=== PATIENT | male | born 1990 | race Caucasian/White ===

== ENCOUNTER 2016-09-11 16:53 | Inpatient (IN) | payer MEDICARE, MEDICAID ==
[~2016-09-11] VITALS: Ht 190.5 cm; Wt 103.7 kg
[~2016-09-11 16:53] MED LIST: /MUPINAS; ATOM40CA PO; BACT2CRE TOP; OXCA15HATB PO; PROZ40CA PO; VICO5TAB OR
[2016-09-11] MEDS ORDERED: LEXA1TAB PO (17:16)
[2016-09-11] MEDS ORDERED: TRIL150T PO (17:24)
[2016-09-11] MEDS ORDERED: CLON3PA TD (17:24)
[2016-09-11] MEDS ORDERED: DEXT15CA5 PO (17:24)
[2016-09-11 17:46] LABS: MEAN CORPUSCULAR HEMOGLOBIN 30.4 pg (27.0-33.0); MEAN CORPUSCULAR HGB CONC 32.4 g/dl (32.0-36.5); MEAN CORPUSCULAR VOLUME 93.8 fl (80.0-96.0); RED CELL DISTRIBUTION WIDTH 13.7 % (11.5-14.5)
[2016-09-11 18:34] LABS: METHADONE URINE NEGATIVE (NEGATIVE)
[2016-09-11 18:37] LABS: ALBUMIN 4.5 GM/DL (3.2-5.2); ALBUMIN/GLOBULIN RATIO 1.29 (1.00-1.93); ALKALINE PHOSPHATASE 69 U/L (45-117); ALT/SGPT 14 U/L (12-78); ANION GAP 8 MEQ/L (8-16); AST/SGOT 15 U/L (15-37); BILIRUBIN,DIRECT 0.2 MG/DL (0.0-0.2); BILIRUBIN,TOTAL 0.6 MG/DL (0.2-1.0); BLOOD UREA NITROGEN 14 MG/DL (7-18); CALCIUM LEVEL 8.9 MG/DL (8.5-10.1); CARBON DIOXIDE LEVEL 28 MEQ/L (21-32); CHLORIDE LEVEL 104 MEQ/L (98-107); CREATININE FOR GFR 0.84 MG/DL (0.70-1.30); GLOMERULAR FILTRATION RATE > 60.0 (>60); GLUCOSE, FASTING 88 MG/DL (70-105); POTASSIUM SERUM 3.4 MEQ/L (3.5-5.1); SODIUM LEVEL 140 MEQ/L (136-145)
[2016-09-11] MEDS ORDERED: POTASSIUM CHLORIDE 10 MEQ SR TABLET PO ONE (19:15)
[2016-09-11] MEDS ORDERED: CLON-404 PO (20:41)
[2016-09-11] MEDS ORDERED: ADDE15CA PO (20:41)
[2016-09-11] MEDS ORDERED: ADDE5TAB5 PO (20:41)
[2016-09-11] MEDS ORDERED: MOM 30ML SUSPENSION UDC PO PRN (22:00)
[2016-09-11] MEDS ORDERED: ACETAMINOPHEN TAB 650MG DOSE (2X325MG) PO PRN (22:00)
[2016-09-11] MEDS ORDERED: MAALOX 30 ML SUSP *UDC PO PRN (22:00)
[2016-09-11 22:15] VITALS: BP 132/86
[2016-09-11] MEDS: traZODone 50 MG TAB PO PRN (23:06)
[2016-09-11] MEDS: OXcarbazepine 150 MG TAB PO SCH (23:07)
[2016-09-11] MEDS: cloNIDine 0.1 MG TAB PO SCH (23:07)
[2016-09-12 06:14] VITALS: BP 128/68
--- NOTE | 2016-09-12 08:59 | HPEPDOC ---
Medical History and Physical Date of Admission Sep 11, 2016 at 19:14 History and Physical PCP: Dr Mendez ATTENDING: Dr. Emile Garzon HPI: 25yoM admitted to [facility] for unspecified depressive disorder, being medically examined today. No acute medical complaints today. Denies any fevers, chills, weakness, fatigue, RODRIGUEZ, CP, SOB, cough, palpitations, abdominal pain, N/V /D or changes in bowel or bladder habits. PMHx: Anxiety Depression OCD Insomnia ADHD PSHX: H/O ID left hand 09/24/11- MRSA SOCHX: Resides in: [facility] Marital Status: Kids: 1 son Employment: unemployed Tobacco use: 4-5 PPD ETOH: denies Illicit Drugs: marijuana- last used 1 week ago IV Drug Use: Denies Tattoos done unprofessionally: x2 HIV/Hepatitis screening 1 year ago neg per pt. FAMHX: Mother: Alive, depression/HTN Father: Alive, PTSD, depression, H/O SI Siblings: 1 brother, 1 sister Alive, anxiety, depression. Children: Alive, well Unexpected deaths due to medical reasons: None. ROS: As noted in HPI, otherwise 11pt ROS of systems reviewed and unremarkable. PE: GEN: 25yoM, appears stated age. Well-nourished, well developed. No acute distress. Alert and oriented x 3. Pleasant, interactive. HEENT: Normocephalic, atraumatic. Pupils are equal, round, and reactive to light. Extraocular movements are intact. No nystagmus appreciated. Sclera are nonicteric. Conjunctiva without injection. Nose midline. Nasal turbinates without bogginess. EACs both patent BL. TMs both visualized and resendiz with good cone of light, no bulging or erythema. No facial asymmetry. Moist mucous membranes. Dentition fair. Pharynx pink and moist, no cobblestoning. Neck supple , trachea midline. No lymphadenopathy or thyromegaly appreciated. CHEST: Regular rate and rhythm, +S1, +S2 LUNGS: Clear to auscultation bilaterally. No wheezes, rales, or rhonchi. Breathing appears symmetric and easy. Patient is speaking in full sentences. No accessory muscle use. ABD: Round, soft, non-tender, non-distended. +Bowel sounds throughout. No rebound or guarding. No costovertebral angle tenderness. EXT: Pulses 2+ bilaterally dorsalis pedis and radial. No lower extremity edema appreciated. SKIN: [place], dry, warm. Capillary refill <2sec. No rashes. A few small superficial lacerations are noted on the hands b/l (pt states are related to fixing a washer at home). NEURO: Alert and oriented x 3. Cranial nerves III-XII are intact. No focal deficits appreciated. EKG: pending. A&P: 25yoM admitted to [facility] for unspecified depressive disorder 1. Psych. Plan per Psychiatry. Obtain baseline EKG to assure the safety of psychiatric medications as they can prolong the QT interval. 2. Nicotine dependence. Patch available. 3. Hypokalemia. Supplement given in ED by mouth. Recheck BMP. 4. Follow up with PCP on discharge. 5. Substance use. Per psychiatry. 6. Tattoo done unprofessionally. Patient states has been screened for HIV and hepatitis in the past. Patient states was negative. Patient declines rescreening. 7. Steam Hand Arias present throughout exam. Vital Signs Vital Signs Label Value Date Time Patient Temperature 97.9 degrees F 09/12/16 0614 Temperature Source Tympanic 09/12/16 0614 Pulse 66 09/12/16 0614 Respiratory Rate 18 bpm 09/12/16 0614 Blood Pressure Assessment 128/68 (88) 09/12/16 0614 Bedside Pulse Oximetry 98 % 09/11/16 1654 Item Value Date Time Oxygen Delivery Method Room Air 09/11/16 1654 Laboratory Data Labs 24H Laboratory Tests 2 09/11/16 17:29: Acetaminophen Level < 2.0L, Aspartate Amino Transf (AST/SGOT) 15, Alanine Aminotransferase (ALT/SGPT) 14, Alkaline Phosphatase 69, Total Bilirubin 0.6, Direct Bilirubin 0.2, Albumin 4.5, Albumin/Globulin Ratio 1.29, Anion Gap 8, Calcium Level 8.9, Ethyl Alcohol Level < 0.003, Glomerular Filtration Rate > 60.0, Salicylates Level 2.5L, Thyroid Stimulating Hormone (TSH) 1.570, Total Protein 8.0, Urine Amphetamines Screen POSITIVEH, Urine Benzodiazepines Screen NEGATIVE, Urine Opiates Screen NEGATIVE, Urine Barbiturates Screen NEGATIVE, Urine Cannabinoids Screen POSITIVEH, Urine Cocaine Metabolite Screen NEGATIVE, Urine Methadone Screen NEGATIVE, Urine Phencyclidine Screen NEGATIVE CBC/BMP Laboratory Tests 09/11/16 17:29 Red Blood Count 4.91, Mean Corpuscular Volume 93.8, Mean Corpuscular Hemoglobin 30.4, Mean Corpuscular Hemoglobin Concent 32.4, Red Cell Distribution Width 13.7 Home Medications Scheduled Amphetamine/Dextroamphetamine (Adderall 5 mg) 1 Tab Tab 15 MG PO DAILY TAKES AROUND 1400 Amphetamine/Dextroamphetamine (Adderall Xr 15 mg) 1 Cap Cap 1 CAP PO DAILY TAKES IN THE MORNING Clonidine Hydrochloride (Clonidine HCl) 0.3 Mg Tab 0.3 MG PO QHS Escitalopram Oxalate (Lexapro) 10 Mg Tab 10 MG PO DAILY Oxcarbazepine (Trileptal) 150 Mg Tab 150 MG PO BID Allergies Coded Allergies: Latex (Unverified Allergy, Unknown, SPINA BIFIDA ACULTA, 09/30/12) Gali Carroll Sep 12, 2016 08:59
[2016-09-12] MEDS: ADDERALL 15 MG PO SCH (09:30)
[2016-09-12] MEDS: OXcarbazepine 150 MG TAB PO SCH ×2 (09:30→21:26)
[2016-09-12] MEDS: NICOTINE 21MG/24HR 1 EA TRANSDERMAL TD SCH (09:30)
[2016-09-12] MEDS: ESCITALOPRAM OXALATE 10 MG TAB (LEXAPRO) PO SCH (09:30)
[2016-09-12 10:34] LABS: ANION GAP 9 MEQ/L (8-16); BLOOD UREA NITROGEN 12 MG/DL (7-18); CALCIUM LEVEL 8.9 MG/DL (8.5-10.1); CARBON DIOXIDE LEVEL 27 MEQ/L (21-32); CHLORIDE LEVEL 108 MEQ/L (98-107); CREATININE FOR GFR 0.84 MG/DL (0.70-1.30); GLOMERULAR FILTRATION RATE > 60.0 (>60); GLUCOSE, FASTING 93 MG/DL (70-105); POTASSIUM SERUM 3.9 MEQ/L (3.5-5.1); SODIUM LEVEL 144 MEQ/L (136-145)
[2016-09-12 11:59] VITALS: BP 138/77
[2016-09-12] MEDS: ADDERALL 5 MG TAB PO SCH (14:24)
[2016-09-12] MEDS ORDERED: PROPRANOLOL 20 MG TAB PO ONE (17:45)
--- NOTE | 2016-09-12 18:17 | HPEPDOC ---
[facility] History & Physical History and Physical DATE OF ADMISSION: Sep 11, 2016 at 19:14 LEGAL STATUS AT ADMISSION: 9.39 CHIEF COMPLAINT: "I'm just so angry" HISTORY OF THE PRESENT ILLNESS: The patient a 25-year-old man presented to [facility] emergency room complaining of suicidal ideation after getting into an argument with his of the past year. He described having difficulties with anger and lashing out. He described that he got into a severe argument with his over the uncleanliness of a particular closet. The patient described that he had difficulty keeping his house clean to his standards and became fairly frustrated , whenever the house became disorderly in any manner. The patient described he had had a long difficult experience with anger since his young childhood. He describes that he is had multiple episodes of violence in the past and difficulty controlling his emotions. He described that his demanded that he seek psychiatric treatment in order to control his anger or she would leave him. The patient presented to the ER after being referred by her after the said incident. The patient had noted that he was on very tenuous terms of his prior to this and that he was not allowed to see his child due to his frequent outbursts of rage. PSYCHIATRIC ROS: Affective:The patient denies any episodes of unprovoked depressed mood associated with neurovegetative symptoms lasting longer than 2 weeks with symptoms present nearly everyday. The patient denies any episodes of euphoria/ dysphoria associated with decreased need for sleep, hedonism, talkatively or impulsivity lasting longer than 5 days. Anxiety:The patient denies any excessive worry associated with physical symptoms. They deny any experience of discreet panic in the past. Trauma:The patient denies any traumatic events associated with nightmares or intrusive thoughts. Psychosis:The patient denies any experiences of auditory or visual hallucinations. They deny any episodes of paranoia or delusional thinking in the past Personality: The patient admits to having long-standing trouble since early adulthood with chronic explosive anger, chronic sense of emptiness, stress- induced paranoia and dissociation, impulsivity that is potentially damaging and recurrent suicidal gestures. He additionally alludes to difficulties with extreme mood fluctuations and variability that is primarily intra-day. PAST PSYCHIATRIC HISTORY: Prior Psychiatric Diagnosis: ADHD and depression. Outpatient Treatment: Currently being seen at [facility] by a therapist and a psychiatrist. Previous admissions: : One prior at [facility] [address] when he was an adolescent but none since adulthood Current Medications: Adderall, Trileptal and Lexapro Suicide attempts: The patient denies having any attempts but describes passing thoughts Psychotropic Medication History: Has been tried a variety of different medications including Depakote, risperidone, Abilify and Ritalin. He describes there are many others but he is unable to remember them as he was treated as a child. ALLERGIES: Please see below. FAMILY PSYCHIATRIC HISTORY: Patient states that his father is "just like me" but also suffers from alcoholism. His mother suffers from depression and his grandmother bipolar disorder. SOCIAL HISTORY: Early Relations:/development the patient's early relations were marred by a tumultuous relationship with his father and a generally good relationship with his mother -sibling order: Youngest of 2 brothers -Paternal relationships: Fiery relation for this father and idealizing relationship with his mother Education: Completed high school but has learning disability namely related to reading and writing. 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 Legal: No pending charges but has had trouble in the past due to his anger Martial: with 1 son who may his roughly 1 years old Economic: Strained due to SSD support Supports: Currently his family and Abuse/trauma: Denies SUBSTANCE ABUSE HISTORY: States that he is used marijuana since he was a teenager but has recently stopped as he knows negative effects from continued use. Rarely before he was a everyday marijuana user. MEDICAL HISTORY: Reported concerns of diabetes, reportedly drinks 3L of sugary soda a day MENTAL STATUS EXAMINATION: General: Disheveled and unshaven Speech: Spontaneous and fluid with mild pressure Thought processes: Linear and coherent Thought content: Some perseveration on anger Abstract reasoning, and computation: Intact Description of associations: Intact Description of abnormal or psychotic thoughts:Denies any suicidal or homicidal ideation. Denies any auditory or visual hallucinations. Does not appear to be responding to internal stimuli. Does not appear to be endorsing any bizarre or paranoid ideation. Judgment: Fair Insight: Fair Orientation: Alert and oriented 3 Recent and remote memory: Intact Attention span and concentration: Intact Fund of knowledge: Adequate Mood: "Horrible" Affect: Dysphoric and constricted DIAGNOSES: 1. Unspecified depressive disorder. 2. Borderline personality disorder, provisional. 3. Cannabis use disorder, severe, in early remission. ASSESSMENT: 25-year-old man with a long history of uncontrollable anger and moodiness whom presents after a argument with his . He has a long history of chronic emptiness associated with stress-induced paranoia and dissociations. He has no episodes of overt trauma however his personality structure was seen in group and individually is highly suggestive of borderline personality disorder. PROBLEM LIST: 1. Suicide. 2. Depression. 3. Coping skills. INITIAL TREATMENT PLAN: 1. Patient was admitted on a 9.39 legal status. 2. Complete history was obtained. 3. With patients permission, family will be contacted and database will be expanded. 4. Patients medication regimen will be reviewed and changed accordingly. -Patient was started on Inderal 20 mg daily with a 10 mg dose today for trial his other medications were resumed without change 5. Patient will be provided with protected environment. 6. Patient will be treated with individual, group, and milieu therapies. 7. Patient will receive supportive psych-education. 8. Discharge planning will commence immediately. 9. Outpatient follow-up treatment will be strongly recommended. 10. The initial treatment plan will focus initially on: ESTIMATED LENGTH OF STAY: 3-5 DAYS. TIME SPENT COUNSELING AND COORDINATING INITIAL CARE: 50 minutes. Laboratory Data 24H Labs Laboratory Tests 2 09/12/16 09:53: Anion Gap 9, Blood Urea Nitrogen 12, Creatinine 0.84, Sodium Level 144, Potassium Level 3.9, Chloride Level 108H, Carbon Dioxide Level 27, Calcium Level 8.9, Glomerular Filtration Rate > 60.0 CBC/BMP Laboratory Tests 09/12/16 09:53 Calcium Level 8.9 Medications Scheduled Amphetamine/Dextroamphetamine (Adderall 5 mg) 1 Tab Tab 15 MG PO DAILY ( Reported) TAKES AROUND 1400 Amphetamine/Dextroamphetamine (Adderall Xr 15 mg) 1 Cap Cap 1 CAP PO DAILY ( Reported) TAKES IN THE MORNING Clonidine Hydrochloride (Clonidine HCl) 0.3 Mg Tab 0.3 MG PO QHS (Reported) Escitalopram Oxalate (Lexapro) 10 Mg Tab 10 MG PO DAILY (Reported) Oxcarbazepine (Trileptal) 150 Mg Tab 150 MG PO BID (Reported) Allergies Coded Allergies: Latex (Unverified Allergy, Unknown, SPINA BIFIDA ACULTA, 09/30/12) VITAL SIGNS Vital Signs Date Time Temp Pulse Resp B/P Pulse Ox O2 Delivery O2 Flow Rate FiO2 09/11/16 16:54 97.0 70 16 158/92 98 Room Air GME ATTESTATION My preceptor for this patient encounter was physically present in the building during the encounter and was fully available. As needed, all aspects of the patient interview, examination, medical decision making process, and medical care plan development were reviewed and approved by the preceptor. Preceptor is aware and concurs with the plan as stated in the body of this note and will attest to such by his/her cosignature. JUSTIN AGUIRRE DO Sep 12, 2016 18:17 JUSTIN AGUIRRE DO Sep 12, 2016 18:17
[2016-09-12 18:26] VITALS: BP 146/89
[2016-09-12] MEDS: cloNIDine 0.1 MG TAB PO SCH (21:26)
[2016-09-12] MEDS: traZODone 50 MG TAB PO PRN (21:26)
[2016-09-13 06:34] VITALS: BP 142/83
[2016-09-13 06:35] VITALS: BP 142/83
[2016-09-13] MEDS ORDERED: PROPRANOLOL 20 MG TAB PO SCH (09:00)
[2016-09-13] MEDS: NICOTINE 21MG/24HR 1 EA TRANSDERMAL TD SCH (09:29)
[2016-09-13] MEDS: ADDERALL 15 MG PO SCH (09:30)
[2016-09-13] MEDS: ESCITALOPRAM OXALATE 10 MG TAB (LEXAPRO) PO SCH (09:30)
[2016-09-13] MEDS: OXcarbazepine 150 MG TAB PO SCH ×2 (09:30→20:45)
[2016-09-13] MEDS: ADDERALL 5 MG TAB PO SCH (16:13)
[2016-09-13] MEDS ORDERED: PROPRANOLOL 20 MG TAB PO ONE (17:15)
--- NOTE | 2016-09-13 17:28 | IPNPDOC ---
[facility] Progress Note Progress Note DATE OF SERVICE: 09/13/16 INTERVAL HISTORY: The patient is met with today. He appears much more social and amenable. Discussion is much less about anger and violence and more focused on him discussion about various topics. He described that the propranolol have been very helpful for his anxiety and agitation. He described that he felt much more relaxed and calm. He stated that he's been able to socialize on the bravo and speak to others without much anxiety. He further went on to described that he feels that the medicine is highly effective for his needs. Nursing staff of noted that he is much more amenable. He appears much less anxious and the previously noted tremors appear to have resolved. VITAL SIGNS: See below. NEW TEST RESULTS: See below CURRENT MEDICATIONS: See below. MENTAL STATUS EXAMINATION: General: Well dressed with good hygiene Speech: Spontaneous and fluid Thought processes: Linear and logical Thought content: Fond reminiscence of past jobs Abstract reasoning, and computation: Intact Description of associations: Intact Description of abnormal or psychotic thoughts:Denies any suicidal or homicidal ideation. Denies any auditory or visual hallucinations. Does not appear to be responding to internal stimuli. Does not appear to be endorsing any bizarre or paranoid ideation. Judgment: Good Insight: Good Orientation: Alert and orientated 3 Recent and remote memory: Intact Attention span and concentration: Intact Fund of knowledge: Adequate Mood: "Better" Affect: Euthymic with a full range DIAGNOSES: 1. Unspecified depressive disorder. 2. Unspecified anxiety disorder. 3. Borderline personality disorder, provisional. ASSESSMENT: 25-year-old man with a history of anger aggression and depression who presents after becoming suicidal. He is responding very well to propranolol and is amenable to continuing and titrating it to full affect. MANAGEMENT PLAN: Medications: Increase propranolol to 30 mg twice a day with intention to switch over to long acting 60 mg daily. Continue Lexapro 10 mg and Trileptal 150 mg twice a day. Additionally continue Adderall 15 mg twice a day Psychotherapy: Standard Social: Consider meeting with to discuss solutions for anger and conflict resolution between Her and the patient Misc: None Disposition: The patient will require longer inpatient stay in order to titrate his medications to full effect. He does appear to have had initial good response , however due to the severity of his previous presentations in the past, when he was a child, he will need another day of observation in order to determine that the effects are maintained. TIME SPENT: 20 minutes. Vital Signs Vital Signs Date Time Temp Pulse Resp B/P Pulse Ox O2 Delivery O2 Flow Rate FiO2 09/13/16 09:29 64 142/83 09/13/16 06:35 99.1 18 09/11/16 16:54 98 Room Air Laboratory Data 24H Labs Laboratory Tests 2 09/13/16 17:00: Current Medications Current Medications Acetaminophen (Tylenol Tab) 650 mg Q6HP PRN PO HEADACHE or DISCOMFORT; Start at 22:00; Stop 10/11/16 at 21:59 Al Hydrox/Mg Hydrox/Simethicone (Mylanta) 30 ml Q4HP PRN PO HEARTBURN/ INDIGESTION; Start 09/11/16 at 22:00; Stop 10/11/16 at 21:59 Amphetamine/ Dextroamphetamine (Adderall) 15 mg DAILY@14 PO Last administered on 09/13/16 16:13; Start 09/12/16 at 14:00; Stop 09/19/16 at 13:59 Clonidine HCl (Catapres) 0.3 mg QHS PO Last administered on 09/12/16 21:26; Start 09/11/16 at 21:00; Stop 10/12/16 at 20:59 Escitalopram Oxalate (Lexapro) 10 mg DAILY PO Last administered on 09/13/16 09 :30; Start 09/12/16 at 09:00; Stop 10/12/16 at 08:59 Home Med (Med Rec Complete!) ASDIRECTED XX ; Start 09/11/16 at 20:45; Stop at 20:45; Status DC Magnesium Hydroxide (Milk Of Magnesia) 30 ml DAILYPRN PRN PO CONSTIPATION; Start 09/11/16 at 22:00; Stop 10/11/16 at 21:59 Nicotine (Nicoderm Cq 21mg) 1 patch DAILY TD Last administered on 09/13/16 09: 29; Start 09/12/16 at 09:00; Stop 10/12/16 at 08:59 Oxcarbazepine (Trileptal) 150 mg BID PO Last administered on 09/13/16 09:30; Start 09/11/16 at 21:00; Stop 10/11/16 at 20:59 Patient Own Medication (Patient'S Own Med) ADDERALL XR 15 MG PO DAILY DAILY PO Last administered on 09/13/16 09:30; Start 09/12/16 at 09:00; Stop 10/12/16 at 08:59 Propranolol HCl (Inderal La) 40 mg DAILY PO ; Start 09/14/16 at 09:00; Stop at 09:00; Status DC Propranolol HCl (Inderal) 20 mg DAILY PO Last administered on 09/13/16 09:29; Start 09/13/16 at 09:00; Stop 09/13/16 at 16:52; Status DC Propranolol HCl (Inderal) 30 mg BID PO ; Start 09/13/16 at 21:00; Stop 10/13/16 at 20:59; Status UNV Trazodone HCl (Desyrel) 50 mg QHSP PRN PO INSOMNIA Last administered on 21:26; Start 09/11/16 at 22:00; Stop 10/11/16 at 21:59 Allergies Coded Allergies: Latex (Unverified Allergy, Unknown, SPINA BIFIDA ACULTA, 09/30/12) GME ATTESTATION My preceptor for this patient encounter was physically present in the building during the encounter and was fully available. As needed, all aspects of the patient interview, examination, medical decision making process, and medical care plan development were reviewed and approved by the preceptor. Preceptor is aware and concurs with the plan as stated in the body of this note and will attest to such by his/her cosignature. JUSTIN AGUIRRE DO Sep 13, 2016 17:28
[2016-09-13 18:00] VITALS: BP 135/90
[2016-09-13] MEDS: cloNIDine 0.1 MG TAB PO SCH (20:45)
[2016-09-13] MEDS: traZODone 50 MG TAB PO PRN (20:45)
--- NOTE | 2016-09-13 22:01 | ECGEPIP ---
Stationary ECG Study [facility] Test Date: 2016-09-12 Pat Name: ARMIDA TAMAYO Department: Room: [place] [address] Gender: M Digital Media Specialist: HAO : 1990 Requested By: Gali Carroll Order Number: [id number] Reading MD: Thu Moses Measurements Intervals [place] Rate: 67 P: 53 OK: 140 QRS: 37 QRSD: 102 T: 42 QT: 346 QTc: 366 Interpretive Statements SINUS RHYTHM SIMILAR 09/21/14 Electronically Signed On 09-13-2016 22:01:44 EDT by Thu Moses
[2016-09-14 06:18] VITALS: BP 131/65
[2016-09-14] MEDS: NICOTINE 21MG/24HR 1 EA TRANSDERMAL TD SCH (08:38)
[2016-09-14] MEDS: ESCITALOPRAM OXALATE 10 MG TAB (LEXAPRO) PO SCH (08:39)
[2016-09-14] MEDS: ADDERALL 15 MG PO SCH (08:39)
[2016-09-14] MEDS: PROPRANOLOL 10 MG TAB PO SCH ×2 (08:40→17:28)
[2016-09-14] MEDS: OXcarbazepine 150 MG TAB PO SCH ×2 (08:40→21:23)
[2016-09-14] MEDS ORDERED: PROPRANOLOL 60 MG LA CAP PO SCH (09:00)
[2016-09-14] MEDS: ADDERALL 5 MG TAB PO SCH (14:19)
[2016-09-14 18:00] VITALS: BP 136/87
--- NOTE | 2016-09-14 20:18 | IPNPDOC ---
[facility] Progress Note Progress Note DATE OF SERVICE: 09/14/16 INTERVAL HISTORY: The patient is met with today. He describes that his anger is much more manageable with the propranolol. He describes that he had an episode of being irritated by another patient's visitor. He describes that low he felt the welling anger inside him he was able to effectively control it as he felt that "blocked" his episodes of rage. He additionally felt as though his diet here was much more controlled and that he did not feel the fluctuations and hunger and other symptoms possibly associated with subclinical hypoglycemia. He describes that he is feeling better for discharge and was curious about when he would be discharged. Nursing notes him to be generally amenable on the bravo with no incidences overnight. VITAL SIGNS: See below. NEW TEST RESULTS: See below CURRENT MEDICATIONS: See below. MENTAL STATUS EXAMINATION: General: Well dressed with good hygiene Speech: Spontaneous and fluid Thought processes: Linear and logical Thought content: Curiosity about ART Abstract reasoning, and computation: Intact Description of associations: Intact Description of abnormal or psychotic thoughts:Denies any suicidal or homicidal ideation. Denies any auditory or visual hallucinations. Does not appear to be responding to internal stimuli. Does not appear to be endorsing any bizarre or paranoid ideation. Judgment: Fair Insight: Fair Orientation: Alert and orientated 3 Recent and remote memory: Intact Attention span and concentration: Intact Fund of knowledge: Adequate Mood: "Better" Affect: Euthymic with a full range DIAGNOSES: 1. Unspecified anxiety disorder. 2. Unspecified impulse/conduct disorder. 3. Borderline personality disorder, provisional. ASSESSMENT: 25-year-old man with a history of anxiety and impulsive control problems. He does meet criteria for borderline precise disorder, however he does appear to have discrete episodes of rage that respond very well to propranolol. He is being titrated up on the propranolol to good effect. He is approaching psychiatric stability. MANAGEMENT PLAN: Medications: Switch propranolol 30 mg twice a day to propranolol long acting 60 mg daily, continue Lexapro, Trileptal and Adderall as below Psychotherapy: Continue with individual and group psychotherapy Social: Coordinate with almaz for possible meeting for discharge for prospective discharge on Saturday Misc: None Disposition: Patient will require longer inpatient stay to titrate his medications to full affect. He is approaching stability and arrangements were made for safe and effective discharge. TIME SPENT: 20 minutes. Vital Signs Vital Signs Date Time Temp Pulse Resp B/P Pulse Ox O2 Delivery O2 Flow Rate FiO2 09/14/16 17:28 78 136/87 09/14/16 06:18 97.1 18 09/11/16 16:54 98 Room Air Current Medications Current Medications Acetaminophen (Tylenol Tab) 650 mg Q6HP PRN PO HEADACHE or DISCOMFORT; Start at 22:00; Stop 10/11/16 at 21:59 Al Hydrox/Mg Hydrox/Simethicone (Mylanta) 30 ml Q4HP PRN PO HEARTBURN/ INDIGESTION; Start 09/11/16 at 22:00; Stop 10/11/16 at 21:59 Amphetamine/ Dextroamphetamine (Adderall) 15 mg DAILY@14 PO Last administered on 09/14/16 14:19; Start 09/12/16 at 14:00; Stop 09/19/16 at 13:59 Clonidine HCl (Catapres) 0.3 mg QHS PO Last administered on 09/13/16 20:45; Start 09/11/16 at 21:00; Stop 10/12/16 at 20:59 Escitalopram Oxalate (Lexapro) 10 mg DAILY PO Last administered on 09/14/16 08 :39; Start 09/12/16 at 09:00; Stop 10/12/16 at 08:59 Home Med (Med Rec Complete!) ASDIRECTED XX ; Start 09/11/16 at 20:45; Stop at 20:45; Status DC Magnesium Hydroxide (Milk Of Magnesia) 30 ml DAILYPRN PRN PO CONSTIPATION; Start 09/11/16 at 22:00; Stop 10/11/16 at 21:59 Nicotine (Nicoderm Cq 21mg) 1 patch DAILY TD Last administered on 09/13/16 09: 29; Start 09/12/16 at 09:00; Stop 10/12/16 at 08:59 Oxcarbazepine (Trileptal) 150 mg BID PO Last administered on 09/14/16 08:40; Start 09/11/16 at 21:00; Stop 10/11/16 at 20:59 Patient Own Medication (Patient'S Own Med) ADDERALL XR 15 MG PO DAILY DAILY PO Last administered on 09/14/16 08:39; Start 09/12/16 at 09:00; Stop 10/12/16 at 08:59 Propranolol HCl (Inderal La) 40 mg DAILY PO ; Start 09/14/16 at 09:00; Stop at 09:00; Status DC Propranolol HCl (Inderal La) 60 mg DAILY PO ; Start 09/15/16 at 09:00; Stop at 08:59 Propranolol HCl (Inderal) 20 mg DAILY PO Last administered on 09/13/16 09:29; Start 09/13/16 at 09:00; Stop 09/13/16 at 16:52; Status DC Propranolol HCl (Inderal) 30 mg BID@ PO Last administered on 09/14/16 17: 28; Start 09/14/16 at 09:00; Stop 09/14/16 at 17:48; Status DC Trazodone HCl (Desyrel) 50 mg QHSP PRN PO INSOMNIA Last administered on 20:45; Start 09/11/16 at 22:00; Stop 10/11/16 at 21:59 Allergies Coded Allergies: Latex (Unverified Allergy, Unknown, SPINA BIFIDA ACULTA, 09/30/12) GME ATTESTATION My preceptor for this patient encounter was physically present in the building during the encounter and was fully available. As needed, all aspects of the patient interview, examination, medical decision making process, and medical care plan development were reviewed and approved by the preceptor. Preceptor is aware and concurs with the plan as stated in the body of this note and will attest to such by his/her cosignature. JUSTIN AGUIRRE DO Sep 14, 2016 20:18
[2016-09-14] MEDS: cloNIDine 0.1 MG TAB PO SCH (21:24)
[2016-09-14] MEDS: traZODone 50 MG TAB PO PRN (21:26)
[2016-09-15 06:26] VITALS: BP 130/67
[2016-09-15] MEDS: NICOTINE 21MG/24HR 1 EA TRANSDERMAL TD SCH ×2 (08:48→18:04)
[2016-09-15] MEDS: ESCITALOPRAM OXALATE 10 MG TAB (LEXAPRO) PO SCH (08:51)
[2016-09-15] MEDS: OXcarbazepine 150 MG TAB PO SCH ×2 (08:51→22:10)
[2016-09-15] MEDS: ADDERALL 15 MG PO SCH (08:51)
[2016-09-15] MEDS ORDERED: PROPRANOLOL 60 MG LA CAP PO SCH (09:00)
[2016-09-15] MEDS: ADDERALL 5 MG TAB PO SCH (14:12)
--- NOTE | 2016-09-15 15:12 | IPNPDOC ---
[facility] Progress Note Progress Note DATE OF SERVICE: 09/15/16 INTERVAL HISTORY: The patient is met with today individually and with his . He described that the Inderal LA 60 mg daily was ineffective for symptom control as he felt that it wore off towards in the day. He did experience a conflict with his due to perceived slights against her by some staff. He appeared to defended her and his became suspicious of him. They described much distrust in the relationship due to both anger and alluded to infidelity. The patient described that it was difficult for him to process the emotional experience without his anger. He further went on to describes that being in a newly found state of happiness with the medication that it was difficult for him to understand why his was still distrustful and upset with him at times. Some education was given to both the pair on borderline personality disorder and the difficulties with her. He was encouraged at the patient work with his and continue to talk emotionally about their issues and problems. Staff noted the patient has been generally amenable friendly and takes his medications without issue. He has had no disruptive events overnight.. VITAL SIGNS: See below. NEW TEST RESULTS: See below CURRENT MEDICATIONS: See below. MENTAL STATUS EXAMINATION: General: Well dressed with good hygiene Speech: Spontaneous and fluid Thought processes: Linear and logical Thought content: Reflective thoughts on anger Abstract reasoning, and computation: Intact Description of associations: Intact Description of abnormal or psychotic thoughts:Denies any suicidal or homicidal ideation. Denies any auditory or visual hallucinations. Does not appear to be responding to internal stimuli. Does not appear to be endorsing any bizarre or paranoid ideation. Judgment: Fair Insight: Fair Orientation: Alert and orientated 3 Recent and remote memory: Intact Attention span and concentration: Intact Fund of knowledge: Adequate Mood: "Okay" Affect: Euthymic with a full range DIAGNOSES: 1. Unspecified anxiety disorder. 2. Borderline personality disorder, provisional. 3. Unspecified impulse/conduct related disorder. ASSESSMENT: The patient 25-year-old man with a history of anger and conduct problems associated with anxiety and mild depression presented with increasing anger after fighting with his . He is responded very well to propranolol as appears are blocked much of his anger. He does not appear to have diabetes as his hemoglobin was 5.3 however it does appear his high intake of sugary sodas could be difficult for him to process and cause subclinical hypoglycemia and rebound adrenaline response. He's agreed to practice more effective dietary control as an outpatient. MANAGEMENT PLAN: Medications: Change propranolol back to 30 mg twice a day immediate release as well as Lexapro, Trileptal and Adderall as below Psychotherapy: Continue standard psychotherapy Social: Family many with would likely be productive Misc: None Disposition: The patient will need further time on the inpatient bravo in order to plan a safe and effective discharge TIME SPENT: 30 minutes. Vital Signs Vital Signs Date Time Temp Pulse Resp B/P Pulse Ox O2 Delivery O2 Flow Rate FiO2 09/15/16 08:51 95 140/72 09/15/16 06:26 97.5 18 Room Air 09/11/16 16:54 98 Current Medications Current Medications Acetaminophen (Tylenol Tab) 650 mg Q6HP PRN PO HEADACHE or DISCOMFORT; Start at 22:00; Stop 10/11/16 at 21:59 Al Hydrox/Mg Hydrox/Simethicone (Mylanta) 30 ml Q4HP PRN PO HEARTBURN/ INDIGESTION; Start 09/11/16 at 22:00; Stop 10/11/16 at 21:59 Amphetamine/ Dextroamphetamine (Adderall) 15 mg DAILY@14 PO Last administered on 09/15/16 14:12; Start 09/12/16 at 14:00; Stop 09/19/16 at 13:59 Clonidine HCl (Catapres) 0.3 mg QHS PO Last administered on 09/14/16 21:24; Start 09/11/16 at 21:00; Stop 10/12/16 at 20:59 Escitalopram Oxalate (Lexapro) 10 mg DAILY PO Last administered on 09/15/16 08 :51; Start 09/12/16 at 09:00; Stop 10/12/16 at 08:59 Home Med (Med Rec Complete!) ASDIRECTED XX ; Start 09/11/16 at 20:45; Stop at 20:45; Status DC Magnesium Hydroxide (Milk Of Magnesia) 30 ml DAILYPRN PRN PO CONSTIPATION; Start 09/11/16 at 22:00; Stop 10/11/16 at 21:59 Nicotine (Nicoderm Cq 21mg) 1 patch DAILY TD Last administered on 09/13/16 09: 29; Start 09/12/16 at 09:00; Stop 10/12/16 at 08:59 Oxcarbazepine (Trileptal) 150 mg BID PO Last administered on 09/15/16 08:51; Start 09/11/16 at 21:00; Stop 10/11/16 at 20:59 Patient Own Medication (Patient'S Own Med) ADDERALL XR 15 MG PO DAILY DAILY PO Last administered on 09/15/16 08:51; Start 09/12/16 at 09:00; Stop 10/12/16 at 08:59 Propranolol HCl (Inderal La) 40 mg DAILY PO ; Start 09/14/16 at 09:00; Stop at 09:00; Status DC Propranolol HCl (Inderal La) 60 mg DAILY PO Last administered on 09/15/16 08: 51; Start 09/15/16 at 09:00; Stop 10/15/16 at 08:59 Propranolol HCl (Inderal) 20 mg DAILY PO Last administered on 09/13/16 09:29; Start 09/13/16 at 09:00; Stop 09/13/16 at 16:52; Status DC Propranolol HCl (Inderal) 30 mg BID@17 PO Last administered on 09/14/16 17: 28; Start 09/14/16 at 09:00; Stop 09/14/16 at 17:48; Status DC Trazodone HCl (Desyrel) 50 mg QHSP PRN PO INSOMNIA Last administered on 21:26; Start 09/11/16 at 22:00; Stop 10/11/16 at 21:59 Allergies Coded Allergies: Latex (Unverified Allergy, Unknown, SPINA BIFIDA ACULTA, 09/30/12) GME ATTESTATION My preceptor for this patient encounter was physically present in the building during the encounter and was fully available. As needed, all aspects of the patient interview, examination, medical decision making process, and medical care plan development were reviewed and approved by the preceptor. Preceptor is aware and concurs with the plan as stated in the body of this note and will attest to such by his/her cosignature. JUSTIN AGUIRRE DO Sep 15, 2016 15:11 JUSTIN AGUIRRE DO Sep 15, 2016 15:11
[2016-09-15 18:00] VITALS: BP 140/90
[2016-09-15] MEDS: cloNIDine 0.1 MG TAB PO SCH (22:09)
[2016-09-15] MEDS: traZODone 50 MG TAB PO PRN (22:10)
[2016-09-16 06:25] VITALS: BP 115/57
[2016-09-16] MEDS: ESCITALOPRAM OXALATE 10 MG TAB (LEXAPRO) PO SCH (08:05)
[2016-09-16] MEDS: NICOTINE 21MG/24HR 1 EA TRANSDERMAL TD SCH (08:06)
[2016-09-16] MEDS: ADDERALL 15 MG PO SCH (08:07)
[2016-09-16] MEDS: OXcarbazepine 150 MG TAB PO SCH ×2 (08:08→21:50)
[2016-09-16] MEDS ORDERED: PROPRANOLOL 10 MG TAB PO SCH (09:00)
[2016-09-16] MEDS: ADDERALL 5 MG TAB PO SCH (13:56)
[2016-09-16 18:00] VITALS: BP 140/90
[2016-09-16] MEDS: PROPRANOLOL 10 MG TAB PO SCH (18:01)
[2016-09-16] MEDS: traZODone 50 MG TAB PO PRN (21:50)
[2016-09-16] MEDS: cloNIDine 0.1 MG TAB PO SCH (21:51)
[2016-09-17 06:12] VITALS: BP 148/70
[2016-09-17] MEDS: ADDERALL 15 MG PO SCH (07:59)
[2016-09-17] MEDS: ESCITALOPRAM OXALATE 10 MG TAB (LEXAPRO) PO SCH (08:01)
[2016-09-17] MEDS: OXcarbazepine 150 MG TAB PO SCH (08:01)
[2016-09-17 08:02] VITALS: BP 148/70
[2016-09-17] MEDS: PROPRANOLOL 10 MG TAB PO SCH (08:02)
[2016-09-17] MEDS: NICOTINE 21MG/24HR 1 EA TRANSDERMAL TD SCH (08:03)
[2016-09-17] MEDS ORDERED: NICO21PAT TD (10:20)
[2016-09-17] MEDS ORDERED: PROP10TA56 PO (10:54)
--- NOTE | 2016-09-17 18:49 | DS.PDOC ---
[facility] Discharge Summary Discharge Summary DATE OF ADMISSION: Sep 11, 2016 at 19:14 DATE OF DISCHARGE: Sep 17, 2016 at 12:15 DISCHARGE DIAGNOSES: 1. Unspecified depressive disorder. 2. Borderline personality disorder, provisional 3. Unspecified conduct/impulse control disorder. REASON FOR ADMISSION: The patient was admitted to [facility] after he got into a severe art met with his over cleaning a closet. He presented in a state of severe agitation and reported passive wants to . CONSULTANTS INVOLVED: None TREATMENT AND PROGRESS ON THE UNIT : Legal status on admission: 9.39 Medication Management: The patient was resumed on his home Lexapro, Trileptal and Adderall as he did not want to change any of these medications. He was started on low-dose propranolol 10 mg twice daily which appeared to be highly effective for his anger and anxiety. He is eventually tapered up to 30 mg twice a day which appeared to be properly effective for him he was tried on a long- acting formulation in order to avert the need for twice daily dosing, however this did not appear to provide him a sufficient coverage. Psychotherapy: The patient attending groups and individual psychotherapy Behavior: During the first per his admission he appeared be very anxious and preoccupied with anger. Eventually as he began to let the milieu more friendly amenable and jovial. He had no episodes of agitation requiring when necessary's medications. Discharge planning: The patient requested discharge after being stabilized on the 30 mg twice a day propranolol he described that he was initially returning home as he had a young son area he was arranged for outpatient follow-up at his [facility] provider. He did want to perhaps try transferring to outpatient behavioral health at [facility] as he wishes to have a provider that was more psychotherapeutically orientated. He was told that he would likely need to the placed on a wait list as an outpatient and see if he would be able to get an appointment DISCHARGE ASSESSMENT: 25-year-old man with history of anger and anxiety presents in a state of agitation and depression. He has a history of impulsive and conduct problems. He does have a history of drinking a large amount of Mountain Dew although he does not diabetes at this time, there is concern that he could be entering hypoglycemic episodes experiencing subsequent rage from them. The propranolol appeared to have good effect on his anger and anxiety as well as the improved diet available the bravo. MENTAL STATUS EXAMINATION ON DISCHARGE: General: Well dressed with good hygiene Speech: Spontaneous and fluid Thought processes: Linear and logical Thought content: Excited by returning home Abstract reasoning, and computation: Intact Description of associations: Intact Description of abnormal or psychotic thoughts:Denies any suicidal or homicidal ideation. Denies any auditory or visual hallucinations. Does not appear to be responding to internal stimuli. Does not appear to be endorsing any bizarre or paranoid ideation. Judgment: Good Insight: Good Orientation: Alert and orientated 3 Recent and remote memory: Intact Attention span and concentration: Intact Fund of knowledge: Adequate Mood: "Great" Affect: Euthymic with a full range PLAN/FOLLOWUP ARRANGEMENTS: The patient was discharged with follow-up at the [facility] provider. He was given prescriptions of his propranolol. The amount of time spent in the coordination of care for this patient was approximately 30 minutes. Vital Signs Vital Sign - Last 24 Hours 09/16/16 09/17/16 09/17/16 21:51 06:12 08:02 Temp 98.9 Pulse 72 72 Resp 18 B/P 140/90 148/70 148/70 Medications Scheduled Amphetamine/Dextroamphetamine (Adderall 5 mg) 1 Tab Tab 15 MG PO DAILY ( Reported) TAKES AROUND 1400 Amphetamine/Dextroamphetamine (Adderall Xr 15 mg) 1 Cap Cap 1 CAP PO DAILY ( Reported) TAKES IN THE MORNING Clonidine Hydrochloride (Clonidine HCl) 0.3 Mg Tab 0.3 MG PO QHS (Reported) Escitalopram Oxalate (Lexapro) 10 Mg Tab 10 MG PO DAILY (Reported) Nicotine (Nicotine Transdermal Syst) 21 Mg/24 Hr Dis #14 1 PATCH TD DAILY SMOKING CESSATION Oxcarbazepine (Trileptal) 150 Mg Tab 150 MG PO BID (Reported) Propranolol HCl (Propranolol HCl) 10 Mg Tab #14 30 MG PO BID@, ANXIETY/ AGITATION Allergies Coded Allergies: Latex (Unverified Allergy, Unknown, SPINA BIFIDA ACULTA, 09/30/12) GME ATTESTATION My preceptor for this patient encounter was physically present in the building during the encounter and was fully available. As needed, all aspects of the patient interview, examination, medical decision making process, and medical care plan development were reviewed and approved by the preceptor. Preceptor is aware and concurs with the plan as stated in the body of this note and will attest to such by his/her cosignature. JUSTIN AGUIRRE DO Sep 17, 2016 18:49
== END 2016-09-17 12:15 | disposition home or self-care (01) | DRG 881 ==
LOC: M ED 18:25 → M ED INP 19:14 → M PSY 22:09
PROVIDERS: ADMIT Psychiatry & Neurology Psychiatry; ATTEND Psychiatry & Neurology Psychiatry
DX: F32.9 Major depressive disorder, single episode, unspecified (principal); F63.9 Impulse disorder, unspecified; F91.9 Conduct disorder, unspecified; Z79.899 Other long term (current) drug therapy; F60.3 Borderline personality disorder; Z91.040 Latex allergy status; F17.200 Nicotine dependence, unspecified, uncomplicated; E87.6 Hypokalemia

== ENCOUNTER → 2017-03-14 | Outpatient (CLI) | payer MEDICARE, MEDICAID ==
[~2017-03-14] MED LIST changes: +ADDE15CA3 PO; +ADDE1TAB14 PO; +CLON0.3T PO; +CLON3PA TD; +DEXT15CA5 PO; +LEXA1TAB PO; +NICO21PAT TD; +PROP10TA56 PO; +TRIL150T PO
== END ==
LOC: M LAB 10:35
PROVIDERS: ATTEND Registered Nurse Psychiatric/Mental Health
DX: F31.9 Bipolar disorder, unspecified (principal)

== ENCOUNTER → 2017-04-09 | Outpatient (CLI) | payer MEDICARE, MEDICAID | LOC: M LAB 09:35 | PROVIDERS: ATTEND Registered Nurse Psychiatric/Mental Health | DX: F31.9 Bipolar disorder, unspecified (principal) ==

== ENCOUNTER → 2017-09-20 | Outpatient (CLI) | payer MEDICARE, MEDICAID ==
[2017-09-20 10:31] LABS: ALBUMIN 4.2 GM/DL (3.2-5.2); ANION GAP 5 MEQ/L (8-16); BLOOD UREA NITROGEN 9 MG/DL (7-18); CARBON DIOXIDE LEVEL 29 MEQ/L (21-32); CHLORIDE LEVEL 106 MEQ/L (98-107); CREATININE FOR GFR 0.95 MG/DL (0.70-1.30); GLOMERULAR FILTRATION RATE > 60.0 (>60); GLUCOSE, FASTING 72 MG/DL (70-100); PHOSPHORUS LEVEL 3.5 MG/DL (2.5-4.9); POTASSIUM SERUM 4.5 MEQ/L (3.5-5.1); SODIUM LEVEL 140 MEQ/L (136-145)
[2017-09-20 10:40] LABS: LITHIUM LEVEL 1.19 MEQ/L (0.60-1.20)
== END ==
LOC: M LAB 09:27
DX: Z79.899 Other long term (current) drug therapy (principal); F31.9 Bipolar disorder, unspecified
CPT/HCPCS: 80178

== ENCOUNTER → 2017-12-13 | Outpatient (CLI) | payer MEDICARE, MEDICAID | LOC: M WUC 10:07 | DX: M25.562 Pain in left knee (principal) | CPT/HCPCS: 73560 ==

== ENCOUNTER → 2018-01-06 | Outpatient (CLI) | payer MEDICARE, MEDICAID ==
[2018-01-06 12:17] LABS: ANION GAP 7 MEQ/L (8-16); BLOOD UREA NITROGEN 10 MG/DL (7-18); CARBON DIOXIDE LEVEL 28 MEQ/L (21-32); CHLORIDE LEVEL 105 MEQ/L (98-107); CREATININE FOR GFR 0.87 MG/DL (0.70-1.30); GLOMERULAR FILTRATION RATE > 60.0 (>60); GLUCOSE, FASTING 89 MG/DL (70-100); POTASSIUM SERUM 4.4 MEQ/L (3.5-5.1); SODIUM LEVEL 140 MEQ/L (136-145)
[2018-01-06 12:18] LABS: LITHIUM LEVEL 0.67 MEQ/L (0.60-1.20)
== END ==
LOC: M LAB 10:43
DX: F31.9 Bipolar disorder, unspecified (principal)
CPT/HCPCS: 80178

== ENCOUNTER → 2018-03-23 | Outpatient (CLI) | payer MEDICARE, MEDICAID | LOC: M WUC 13:32 | DX: S60.221A Contusion of right hand, initial encounter (principal); X58.XXXA Exposure to other specified factors, initial encounter; Y92.89 Other specified places as the place of occurrence of the external cause; Y93.9 Activity, unspecified; Y99.9 Unspecified external cause status | CPT/HCPCS: 73130 ==

== ENCOUNTER → 2018-07-07 | Outpatient (REF) | payer MEDICARE, MEDICAID | LOC: M SFHCPLAZ 14:28 | PROVIDERS: ATTEND Family Medicine | DX: F33.41 Major depressive disorder, recurrent, in partial remission (principal) ==

== ENCOUNTER → 2018-08-12 | Outpatient (REF) | payer MEDICARE, MEDICAID ==
[2018-08-12 15:15] LABS: FREE T4 0.74 NG/DL (0.76-1.46); THYROID STIMULATING HORMONE 1.6 uIU/ML (0.358-3.740)
== END ==
LOC: M SFHCPLAZ 12:20
PROVIDERS: ATTEND Family Medicine
DX: F41.9 Anxiety disorder, unspecified (principal); F17.210 Nicotine dependence, cigarettes, uncomplicated
CPT/HCPCS: 36415; 84439; 84443; 90471; 90715; 99406; G0463